=== PATIENT | male | born 1965 | race Caucasian/White ===

== ENCOUNTER → 2020-11-01 | Outpatient (CLI) | payer OTHER ==
[~2020-11-01] MED LIST: ABILIFY15 MG PO; ALLERGY RELIEF10 MG PO; CHLORTHALIDONE50 MG PO; CYANOCOBAL1000 MCG/1 INJ; DIVALPROEX SOD250 MG PO; DOXEPIN HCL25 MG PO; DULOXETINE HCL60 MG PO; FENOFIBRATE160 MG PO; FLUTICASONE SPRAY; GLUCAGON EMERGEN1 MG INJ; GLUCOPHAGE1000 MG PO; IBU800 MG PO; KEFLEX500 MG PO; LEVEMIR FL100 UNIT/1 SQ; LISINOPRIL40 MG PO; LOPRESSOR100 MG PO; NEURONTIN300 MG PO; NORCO 5-325 TA1 EACH PO; NORVASC10 MG PO; PROTONIX40 MG PO; TRULICITY1.5 MG/0.5 INJ; TYLENOL 500 MG500 MG PO; VITAMIN D21250 MCG PO; ZOFRAN8 MG PO
== END ==
LOC: HEART CORB 10-11 08:00
DX: R07.2 Precordial pain (principal); I10 Essential (primary) hypertension; I35.1 Nonrheumatic aortic (valve) insufficiency; R93.1 Abnormal findings on diagnostic imaging of heart and coronary circulation
CPT/HCPCS: 78452; 93306; A9502; J2785